=== PATIENT | female | born 1940 | race Caucasian/White ===

== ENCOUNTER 2016-10-19 05:19 | Day surgery (SDC) | payer OTHER ==
[2016-09-09 08:02] VITALS: BMI 36.3
--- NOTE | 2016-10-19 12:46 | HP ---
[facility] - Chief Complaint Chief Complaint: right shoulder pain - Past Medical History Allergies/Adverse Reactions: Allergies Allergy/AdvReac Type Severity Reaction Status Date / Time codeine Allergy Intermediate Rash Verified 10/19/16 11:50 - Current Medications Current Medications: Home Medications Medication Instructions Recorded Amlodipine Besylate 10 mg PO DAILY 09/09/16 Cholecalciferol (Vitamin D3) 5,000 unit PO DAILY 09/09/16 [Vitamin D3] Citalopram Hydrobromide [Celexa -] 10 mg PO DAILY 09/09/16 Insulin Lispro [Humalog] 7 unit SQ ACDIN 09/09/16 Insulin Lispro [Humalog] 10 unit SQ ACBK 09/09/16 Lipase/Protease/Amylase [Creon Dr 1 cap PO BID 09/09/16 6,000 Units Capsule] Tramadol HCl 50 mg PO BID PRN 09/09/16 Vitamin B Complex 1 each PO DAILY 09/09/16 Hydrocodone/Acetaminophen 1 each PO Q6H #40 tablet MDD 4 10/19/16 [Hydrocodon-Acetaminoph 7.5-325] Satellite Physical Exam - Physical Examination Vital Signs: Vital Signs Period Temp Pulse Resp BP Sys/Pete Pulse Ox Last 24 Hr 97.7 F 79 16 144/81 97 General Appearance: Well Nourished, Well Developed, Alert & Oriented x3 ENT: Clear Lung: Normal air movement Heart: Regular rate & rhythm Extremities: Other (right shoulder- +ttp, decr rom, + neer, + perez,nvi) Neurological: Intact, Alert, Oriented Satellite Impression/Plan - Impression/Plan Impression: right shoulder impingement Operative Procedure: right shoulder arthroscopy with MONIQUE AGGARWAL Date to be Performed: 10/19/16
[2016-10-19] MEDS ORDERED: ROPIVACAINE HCL 0.5% 30ML VIAL ONE (12:53)
[2016-10-19] MEDS ORDERED: MIDAZOLAM HCL 2 MG/2 ML SINGLE DOSE VIAL ONE ×2 (12:56)
[2016-10-19] MEDS ORDERED: PROPOFOL 20 ML ONE (13:09)
[2016-10-19] MEDS ORDERED: ceFAZolin SODIUM 1 GM VIAL ONE (13:09)
[2016-10-19] MEDS ORDERED: LIDOCAINE HCL/PF 2% SDV 5ML VIAL ONE (13:09)
[2016-10-19] MEDS ORDERED: ROCURONIUM BROMIDE 50 MG/5 ML VIAL ONE (13:09)
[2016-10-19] MEDS ORDERED: ONDANSETRON 4 MG/2 ML VIAL ONE (13:42)
[2016-10-19] MEDS ORDERED: ceFAZolin SODIUM 1 GM VIAL IVPB ONE (13:42)
[2016-10-19] MEDS ORDERED: NEOSTIGMINE METHYLSULFATE 0.5 MG/ML - 10 ML MDV ONE (14:13)
[2016-10-19] MEDS ORDERED: GLYCOPYRROLATE 0.2 MG/1 ML VIAL ONE (14:13)
--- NOTE | 2016-10-19 14:49 | OP ---
Operative Note - Note: Operative Date: 10/19/16 ([facility]) Pre-Operative Diagnosis: right shoulder impingement, rct Operation: right shoulder arthroscopy RCR, SAD, MONIQUE Implants: 1 swivelock Post-Operative Diagnosis: Same as Pre-op Surgeon: Alexey Tate Director Of Cloud Services: Greg Barbosa Anesthesiologist/INSPECTOR AND CLIPPER: Prisca Guy Anesthesia: General, Local Specimens Removed: shavings Estimated Blood Loss (mls): 5 Operative Report Dictated: Yes
[2016-10-19] MEDS ORDERED: ONDANSETRON 4 MG/2 ML VIAL IVPUSH PRN (14:52)
[2016-10-19] MEDS ORDERED: IBUPROFEN 800 MG/8 ML IJ IVPB PRN (14:52)
[2016-10-19] MEDS ORDERED: ACETAMINOPHEN 325 MG TABLET (FP) PO PRN (14:52)
[2016-10-19] MEDS ORDERED: LACTATED RINGERS SOLUTION 1,000 ML IV SCH (15:00)
[2016-10-19 17:01] VITALS: TEMP 97.7
[2016-10-19 18:08] VITALS: BP 138/57; PULSE 76
--- NOTE | 2016-10-20 06:36 | OP ---
DATE OF OPERATION: 10/19/2016 PREOPERATIVE DIAGNOSIS: Right shoulder subacromial impingement, adhesive capsulitis, and possible rotator cuff tear. POSTOPERATIVE DIAGNOSIS: Right shoulder subacromial impingement, adhesive capsulitis, and rotator cuff tear. SURGERY: Right shoulder arthroscopy, subacromial decompression, manipulation under anesthesia, and arthroscopic rotator cuff repair. SURGEON: Alexey Melchor MD OFFICE CASHIER: ANDREW Burleson INDICATIONS: After preoperative discussion including the potential risks, complications, alternatives, and benefits of surgery versus nonsurgical treatment, the patient elected to undergo this procedure. The patient is a 76-year-old female with a preoperative diagnosis of right shoulder subacromial impingement, adhesive capsulitis, and a possible rotator cuff tear. DESCRIPTION OF PROCEDURE: The patient was brought to the operating room, peripheral IV placed, IV sedation was given. Right interscalene block was performed. LMA anesthesia was induced. She was placed into the beach-chair position with ample padding throughout. The right upper extremity was prepped and draped in sterile fashion. The bony landmarks were marked out with a marking pen. Posterior portal was established. Diagnostic glenohumeral arthroscopy was performed. Patient had extensive damage within the glenohumeral joint. 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 The labrum was completely frayed, the biceps tendon was frayed, undersurface of the rotator cuff was frayed. An anterior portal was then established. Under direct visualization, using a spinal needle, a No. 15 scalpel blade just through the skin, a Green cannula was introduced into the shoulder joint, and a shaver was introduced into the glenohumeral joint where it was extensively debrided, cleaned out, all debris was removed. Limited synovectomy was performed with the ArthroCare Wand. The labrum was debrided, the biceps tendon, and the undersurface of the rotator cuff. After this extensive cleanup, initial photographs were taken. Next, our attention turned to the subacromial space. A lateral portal was established under direct visualization. Patient had extensive inflammatory bursitis. Extensive bursectomy was performed revealing a moderate sized subacromial spur, which was taken down with a 5.5-mm oval bur, then straightened up in a reverse, and shaver to removal all debris. Additional bursectomy was performed in the subdeltoid area. The arm was moved. Overall, the rotator cuff actually looked pretty good. There was a definite small crescent-shaped tear involving the insertion of the supraspinatus, and in that area, the supraspinatus was extremely thin. Therefore, that area was captured with two FiberWire sutures and arthroscopically put through a SwiveLock anchor into the humeral head. It came down quite nicely and was very reassuring. The area was copiously irrigated and washed out. All debris removed. Final photographs taken. The arthroscopy portals closed with 3-0 nylon sutures. The area was washed and dried, covered with Aquacel dressing and shoulder immobilizer. Patient was extubated. Total operative time was about an hour, and she was taken out of the beach-chair position. There were no complications during the case, blood loss was minimal, and she was brought to the ambulatory recovery room in stable condition. ALEXEY MELCHOR M.D. [id number]
--- NOTE | 2016-10-21 13:48 | PATH ---
Surgical Pathology Report Patient Name: CLEM ARANDA Med. Rec. #: [id number] /Age/Gender: 1940 (Age: 76) / F Account: [id number] Location: [facility] SURGICAL Taken: 10/19/2016 Received: 10/20/2016 Reported: 10/21/2016 Physicians: Alexey Tate M.D. Specimen(s) Received SHAVINGS Clinical History Right shoulder impingement syndrome Final Diagnosis RIGHT SHOULDER, ARTHROSCOPIC SHAVINGS: HYPERPLASTIC SYNOVIUM WITH CRYSTALLINE MATERIAL MORPHOLOGICALLY SUGGESTIVE OF PSEUDOGOUT (CPPD), ALONG WITH PORTIONS OF CARTILAGE, BONE, AND SKELETAL MUSCLE. Electronically Signed Jun Bowden M.D. Gross Description Received in formalin, labeled "right shoulder shavings," is a 5.0 x 3.5 x 0.5 cm. aggregate of marrero-yellow soft tissue fragments. A underwriting account representative portion is submitted in one cassette. 10/20/201610/20/2016
== END 2016-10-19 18:19 | disposition home or self-care (01) ==
LOC: JASU-SURG 05:19
PROVIDERS: ATTEND Orthopaedic Surgery
PROC: 0LQ14ZZ Repair Right Shoulder Tendon, Percutaneous Endoscopic Approach (ICD-10-PCS; 2016-10-19)
PROC: 0RBJ4ZZ Excision of Right Shoulder Joint, Percutaneous Endoscopic Approach (ICD-10-PCS; 2016-10-19)
PROC: 0RNJ4ZZ Release Right Shoulder Joint, Percutaneous Endoscopic Approach (ICD-10-PCS; principal; 2016-10-19 13:00)
DX: M75.41 Impingement syndrome of right shoulder (principal); M75.01 Adhesive capsulitis of right shoulder; M75.101 Unspecified rotator cuff tear or rupture of right shoulder, not specified as traumatic; M19.011 Primary osteoarthritis, right shoulder
CPT/HCPCS: 88304-TC; 94760